=== PATIENT | male | born 1975 | race Hispanic/Latino ===

== ENCOUNTER 2023-09-23 12:54 | Emergency (ER) | payer OTHER ==
[~2023-09-23] VITALS: Ht 172.7 cm; Wt 95.3 kg
[2023-09-23 13:32] VITALS: O2SAT 98
[2023-09-23] MEDS: HYDROCODONE/APAP 10MG-325MG TAB PO ONE (15:00)
[2023-09-23] MEDS: KETOROLAC TROMETHAMINE 30 MG/ML VIAL IM ONE (15:00)
== END 2023-09-23 15:08 | disposition home or self-care (01) ==
LOC: ER 13:00
DX: M54.42 Lumbago with sciatica, left side (principal); I10 Essential (primary) hypertension
CPT/HCPCS: 72100; 99284; J1885